=== PATIENT | male | born 1995 | race African-American/Black ===

== ENCOUNTER 2016-08-31 23:48 | Emergency (ER) | payer OTHER ==
--- NOTE | ~2016-08-31 | CR72 ---
[facility] A Service of [facility] & [facility] RADIOLOGY TEXT RESULTS PATIENT: AISHWARYA CORRALES LOCATION: [facility] : [birth year] UNIT #: [id number] AGE: [address]: Demetrio Cotto MD SEX: M ORDER DR: [id number] [facility] [address] [place], [place] [address] [id number] E MR#: [id number] Acc #: [id number] NAME: AISHWARYA CORRALES : 1995 SEX: M STUDY DATE/TIME: 08/31/2016 23:53 UNIT: [facility] ROOM: STUDY DESCRIPTION: CR Chest Single View Portable Attending Physician: Demetrio Cotto M.D. Ordering Physician: Demetrio Cotto M.D. Primary Care Physician: No Primary Care Physician MEDICAL IMAGING REPORT This report is preliminary unless electronic signature is present EXAM AP portable chest 08/31/2016. HISTORY 20-year-old male in the ED complaining of 2-day history of cough and fever. Some shortness of air. TECHNIQUE AP portable chest x-ray. FINDINGS Heart size and pulmonary vascularity are normal. The lungs are expanded and clear. No visible pulmonary infiltrate or pleural effusion. IMPRESSION Negative chest. Dictated by... Gerardo Rosales M.D. THIS IS AN ELECTRONICALLY VERIFIED REPORT Gerardo Rosales M.D. at 09/02/2016 9:53 PM KYARA/[email or web address] TD: 09/02/2016 07:47 JOB #: [id number] MEDICAL IMAGING REPORT COPY
[2016-09-01 00:20] LABS: INFLUENZA A NEG (NEG); INFLUENZA B NEG (NEG)
== END 2016-09-01 01:35 | disposition home or self-care (01) ==
LOC: CED 23:48
PROVIDERS: Emergency Medicine
DX: R05 Cough (principal); R50.9 Fever, unspecified
CPT/HCPCS: 36415; 71010; 87804; 96361; 96374; 96375; 99284; J1885; J2405

== ENCOUNTER 2016-09-02 21:45 | Emergency (ER) | payer OTHER | END 2016-09-02 21:50 | disposition left against medical advice (07) | LOC: CED 21:45 | DX: Z53.21 Procedure and treatment not carried out due to patient leaving prior to being seen by health care provider (principal) ==

== ENCOUNTER 2016-11-24 12:22 | Emergency (ER) | payer OTHER ==
--- NOTE | ~2016-11-24 | CT2 ---
[facility] A Service of [facility] & [facility] RADIOLOGY TEXT RESULTS PATIENT: AISHWARYA CORRALES LOCATION: [facility] : [birth year] UNIT #: [id number] AGE: [address]: Gorge Rodriguez DO SEX: M ORDER DR: [id number] [facility] [address] [place], [place] [address] [id number] E MR#: [id number] Acc #: [id number] NAME: AISHWARYA CORRALES : 1995 SEX: M STUDY DATE/TIME: 11/24/2016 15:51 UNIT: [facility] ROOM: STUDY DESCRIPTION: CT Abd and Pelv W Cont Attending Physician: Gorge Rodriguez D.O. Ordering Physician: Gorge Rodriguez D.O. Primary Care Physician: Primary Care Physician No MEDICAL IMAGING REPORT This report is preliminary unless electronic signature is present EXAM CT abdomen and pelvis, 11/24/16 HISTORY Left lower quadrant pain, back pain, dysuria for [address] abdomen and pelvis performed with intravenous administration 100 mL Isovue-370. Enteric contrast not utilized. No comparisons. This CT exam was performed with one or more of the following radiation dose reduction techniques: Automatic exposure control, adjustment of mA and/or kV according to patient size, and iterative reconstruction. FINDINGS Lung bases clear. Inferior heart and pericardium unremarkable. Liver, gallbladder, spleen, pancreas, adrenal glands, kidneys unremarkable. No perinephric inflammatory change. No hydronephrosis. CT PELVIS: No inguinal adenopathy. Urinary bladder unremarkable. Prostate unremarkable. No pelvic or retroperitoneal adenopathy. Distal esophagus unremarkable. Moderate gastric distension with food debris. Correlate with ingestion history. Small bowel, appendix, colon unremarkable. No aneurysm. Bony structures show no acute appearing abnormality. Posterior disc-osteophyte complex L4-L5 mild central spinal canal narrowing. Mild retrolisthesis L5 on S1 without significant spinal canal narrowing. Mild loss of height anteriorly L5 and posteriorly L4 favored to be degenerative in etiology. There is no acute appearing bony abnormality. IMPRESSION 1. No clearly suspicious acute abnormality is seen in the abdomen or pelvis. The gallbladder, pancreas, kidneys, appendix are normal in STS. [facility] A Service of [facility] & [facility] RADIOLOGY TEXT RESULTS PATIENT: AISHWARYA CORRALES LOCATION: [facility] : [birth year] UNIT #: [id number] AGE: [address]: Gorge Rodriguez DO SEX: M ORDER DR: appearance. 2. There is moderate gastric distension with food debris favored to reflect recent ingestion. Correlate with ingestion history. In the absence of recent ingestion, this could be a reflection of delay in gastric emptying. 3. No abnormal fluid collections. 4. Degenerative changes lower lumbar spine. See discussion in body of report. No acute appearing bony abnormality. Dictated by... Lisandro Winter M.D. THIS IS AN ELECTRONICALLY VERIFIED REPORT Lisandro Winter M.D. at 11/25/2016 8:13 AM SUMANTH/malik TD: 11/24/2016 23:08 JOB #: [id number] MEDICAL IMAGING REPORT Page 1 of 1 COPY
[2016-11-24 13:55] LABS: BASOPHIL% 0.4 % (0-2.5); EOSINOPHIL# 0.2 X10e3 (0-0.7); EOSINOPHIL% 2.3 % (0.0-7.0); HEMATOCRIT 46.3 % (38.0-50.0); LYMPHOCYTE# 1.3 X10e3 (1.0-3.5); LYMPHOCYTE% 16.7 % (17.0-45.0); MEAN CELL VOLUME 85.5 FL (83-96); MEAN CORPUSCULAR HEMOGLOBIN 27.7 PG (28-34); MEAN CORPUSCULAR HGB CONC 32.4 g/dL (30-36); MEAN PLATELET VOLUME 8.4 FL (6.5-11.5); MONOCYTE# 0.5 X10e3 (0-1.0); MONOCYTE% 6.1 % (3.0-12.0); NEUTROPHIL# 5.6 X10e3 (1.5-7.1); NEUTROPHIL% 74.5 % (40-75); PLATELET COUNT 192 X10e3 (140-420); RED BLOOD COUNT 5.41 X10e (3.90-5.60); RED CELL DISTRIBUTION WIDTH 12.9 % (11.0-15.5); WHITE BLOOD COUNT 7.5 X10e3 (4.0-10.5)
[2016-11-24 13:57] LABS: DIFF IND NO
[2016-11-24 14:21] LABS: ALBUMIN SERUM 4.7 g/dL (3.5-5.0); BILIRUBIN, DIRECT 0.1 mg/dL (0.0-0.2); BILIRUBIN,INDIRECT 0.9 mg/dL (0.0-0.9); CALCIUM SERUM 9.6 mg/dL (8.4-10.2); POTASSIUM 4.2 mmol/L (3.5-5.1); PROTEIN TOTAL SERUM 7.6 g/dL (6.0-8.3)
[2016-11-24 15:11] LABS: URINE SOURCE CLEAN CATCH
[2016-11-24 15:35] LABS: URINE APPEARANCE CLOUDY; URINE BILIRUBIN NEG (NEG); URINE BLOOD NEG (NEG); URINE COLOR YELLOW; URINE GLUCOSE NEG (NEG); URINE KETONE TRACE (NEG); URINE LEUKOCYTE ESTERASE 2+ (NEG); URINE NITRATE NEG (NEG); URINE PH 7.5 (5-8); URINE PROTEIN NEG (NEG); URINE SPECIFIC GRAVITY 1.024 (1.003-1.035)
[2016-11-24 15:38] LABS: CULTURE INDICATED? YES; URBCS1 AUWI 0-2 /[HPF] (0-2); URINE BACTERIA AUWI NEG (NEGATIVE); URINE SQUAMOUS EPITHELIAL CELL OCC /[HPF]; UWBCS1 AUWI 50-100 (0-5)
[2016-11-24 15:39] LABS: U HYALINE CASTS AUWI 0-2 /[LPF]
[2016-11-27 01:27] LABS: CHLAMYDIA TRACH Detected (Not Detected); N GONOR Not Detected (Not Detected)
== END 2016-11-24 18:10 | disposition home or self-care (01) ==
LOC: CED 12:22
PROVIDERS: Emergency Medicine
DX: R10.9 Unspecified abdominal pain (principal); N39.0 Urinary tract infection, site not specified; Z20.2 Contact with and (suspected) exposure to infections with a predominantly sexual mode of transmission
CPT/HCPCS: 36415; 74177; 80048; 80076; 81003; 82150; 83690; 85025; 87086; 87491; 87591; 96361; 96372; 96374; 99284; J0696; J2405; Q9967

== ENCOUNTER 2017-02-15 01:26 | Emergency (ER) | payer OTHER ==
[~2017-02-15] VITALS: Ht 172.7 cm; Wt 95.2 kg
== END 2017-02-15 02:45 | disposition home or self-care (01) ==
LOC: CED 01:26
DX: L02.212 Cutaneous abscess of back [any part, except buttock and flank] (principal)
CPT/HCPCS: 99282